=== PATIENT | female | born 2000 | race Caucasian/White ===

== ENCOUNTER → 2024-03-01 15:05 | Outpatient (REF) | payer SELFPAY ==
[2024-03-01 16:48] LABS: HIV Combo Negative (Negative)
[2024-03-01 18:24] LABS: Hepatitis B Surface Antigen Negative (Negative)
[2024-03-01 18:41] LABS: Hepatitis B Surface Antibody Negative; Hepatitis C Antibody Negative (Negative)
== END ==
LOC: REG 15:05
PROVIDERS: ATTENDING PHYSICIAN Nurse Practitioner Family
DX: Z57.8 Occupational exposure to other risk factors (principal)
CPT/HCPCS: 86706; 86803; 87340; 87389

== ENCOUNTER → 2025-04-22 14:08 | Outpatient (REF) | payer BC, SELFPAY ==
[2025-04-27 08:47] LABS: Chlamydia trachomatis,ThinPrep Negative (Negative); Neisseria gonorrhoeae,ThinPrep Negative (Negative); Specimen Source Cervical
== END ==
LOC: CPAP 14:08
PROVIDERS: ATTENDING PHYSICIAN Nurse Practitioner Family
DX: Z11.51 Encounter for screening for human papillomavirus (HPV) (principal); Z01.419 Encounter for gynecological examination (general) (routine) without abnormal findings; Z11.3 Encounter for screening for infections with a predominantly sexual mode of transmission
CPT/HCPCS: 87491; 87591; G0123

== ENCOUNTER → 2025-04-30 06:54 | Outpatient (REF) | payer BC, SELFPAY ==
[2025-04-30 07:14] LABS: Hematocrit 40.2 % (37.0-47.0); Hemoglobin 12.9 g/dL (12.0-16.0); Mean Corp Hgb Conc. 32.1 g/dL (33.0-37.0); Mean Corpuscular Volume 90.1 fL (81.0-99.0); Nucleated Red Blood Cells % 0 %; Platelet Count 239 10^3/uL (130-400); Red Cell Dist. Width 12.3 % (11.5-14.5)
[2025-04-30 07:29] LABS: ALT (SGPT) 17 U/L (0-35); AST (SGOT) 24 U/L (14-36); Albumin 4.4 g/dl (3.5-5.0); Alkaline Phosphatase 61 U/L (38-126); Blood Urea Nitrogen 14 mg/dl (7-17); Calcium 9.4 mg/dl (8.4-10.2); Carbon Dioxide 24 mmol/L (22-30); Chloride 108 mmol/L (98-107); Glucose 91 mg/dl (70-99); HDL Cholesterol 102 mg/dl; LDL Cholesterol, Calculated 77 mg/dl; Potassium 4.4 mmol/L (3.5-5.1); Sodium 138 mmol/L (135-145); Total Protein 7.4 g/dl (6.3-8.2); Very Low Density Lipoprotein 10 mg/dl (0-30); eGFR > 60.00
== END ==
LOC: REG 06:54
PROVIDERS: ATTENDING PHYSICIAN Physician Assistant
DX: Z13.220 Encounter for screening for lipoid disorders (principal); Z00.00 Encounter for general adult medical examination without abnormal findings
CPT/HCPCS: 36415; 80053; 80061; 84443; 85025